=== PATIENT | male | born 1995 | race Two or more races ===

== ENCOUNTER 2017-01-18 16:22 | Emergency (ER) | payer OTHER ==
[2017-01-18 16:26] VITALS: BP 139/72; PULSE 71; TEMP 98.9; BMI 31.8
--- NOTE | 2017-01-18 18:19 | PDOC ---
History of Present Illness - General Chief Complaint: Pain Stated Complaint: PAIN Testicular for one week Time Seen by Provider: 01/18/17 16:37 - History of Present Illness Initial Comments: 01/18/17 18:11 CHIEF COMPLAINT: testicular pain HISTORY OF PRESENT ILLNESS: 21 yo M with no significant PMH presents to [facility] with testicular pain x 4 days. Patient reports that he felt a "really sharp pain" four nights ago, and since then he has had continued pain although not quit as sharp. Patient reports that the pain "feels like someone punched me down there, although I know for a fact that didn't happen." Patient states that he feels as if his testicles are "a little swollen" and that the pain alternates between each side. Patient reports that he is not sexually active and never has been. PAST MEDICAL HISTORY: Denies past medical history FAMILY HISTORY: Denies SOCIAL HISTORY: Denies tobacco, alcohol, illicit drug use. SURGICAL HISTORY: Denies ALLERGIES: No known drug allergies REVIEW OF SYSTEMS General/Constitutional: Denies fever or chills. Denies weakness, weight change. HEENT: Denies change in vision. Denies ear pain or discharge. Denies sore throat. Cardiovascular: Denies chest pain or shortness of breath. Respiratory: Denies cough, wheezing, or hemoptysis. Gastrointestinal: Denies nausea, vomiting, diarrhea or constipation. Denies rectal bleeding. Genitourinary: Testicular pain x 4 days. Denies dysuria, frequency, or change in urination. Musculoskeletal: Denies joint or muscle swelling or pain. Denies neck or back pain. Skin and breasts: Denies rash or easy bruising. Neurologic: Denies headache, vertigo, loss of consciousness, or loss of sensation. PHYSICAL EXAM General Appearance: Well-appearing, appropriately dressed. No apparent distress. HEENT: EOMI, PERRLA, normal ENT inspection, normal voice, TMs normal, pharynx normal. No conjunctival pallor. No photophobia, scleral icterus. Neck: Supple. Trachea midline. No tenderness, rigidity, carotid bruit, stridor , lymphadenopathy, or thyromegaly. Respiratory/Chest: Lungs CTAB. No shortness of breath, chest tenderness, respiratory distress, accessory muscle use. No crackles, rales, rhonchi, stridor , wheezing, dullness Cardiovascular: RRR. S1, S2. No JVD, murmur, bradycardia, tachycardia. Gastrointestinal/Abdominal: Normal bowel sounds. Abdomen soft, non-distended. No tenderness or rebound tenderness. No organomegaly, pulsatile mass, guarding , hernia, hepatomegaly, splenomegaly. Genitourinary: Scrotal exam: Mild swelling to left testicle with tenderness on palpation. Lymphatic: No adenopathy, tenderness. Musculoskeletal/Extremities: Normal inspection. FROM of all extremities, normal capillary refill. Pelvis Stable. No CVA tenderness. No tenderness to extremities, pedal edema, swelling, erythema or deformity. Integumentary: Appropriate color, dry, warm. No cyanosis, erythema, jaundice or rash Neurologic: technology engineer II-XII intact. Fully oriented, alert. Appropriate mood/affect. Motor strength 5/5. No appreciable EOM palsy, facial droop or sensory deficit. 01/18/17 19:32 Past History - Past Medical History Allergies/Adverse Reactions: Allergies Allergy/AdvReac Type Severity Reaction Status Date / Time No Known Allergies Allergy Verified 05/29/14 17:16 Home Medications: Ambulatory Orders Ibuprofen 400 mg PO Q6H PRN #28 tablet 01/18/17 Other medical history: denies - Suicide/Smoking/Psychosocial Hx Smoking Status: No Smoking History: Never smoked Number of Cigarettes Smoked Daily: 0 Information on smoking cessation initiated: No Hx Alcohol Use: No Drug/Substance Use Hx: No Substance Use Type: None *Physical Exam - Vital Signs Last Vital Signs Temp Pulse Resp BP Pulse Ox 98.9 F 71 18 139/72 98 01/18/17 16:24 01/18/17 16:24 01/18/17 16:24 01/18/17 16:24 01/18/17 16:24 ED Treatment Course - RADIOLOGY Radiology Studies Ordered: Category Date Time Status SCROTUM AND CONTENTS US [US] Stat Ultrasound 01/18/17 17:11 Ordered Medical Decision Making - Medical Decision Making 01/18/17 19:32 21 yo M with no significant PMH presents to [facility] with testicular pain x 4 days. -Scrotal ultrasound -UA, UCx, Ct/GC Ultrasound results negative for torsion. Epididymal cyst vs spermatocele. Pt seen and evaluated by attending MD Huber, possible torsion 4 days ago now resolving. Will give NSAIDS and referral to urology. Patient instructed to f/u with urology and given strict instructions to go to ER immediately should symptoms present again. *DC/Admit/Observation/Transfer Diagnosis at time of Disposition: Testicular pain, unspecified - Discharge Dispostion Disposition: HOME Condition at time of disposition: Stable Admit: No - Prescriptions Prescriptions: Ibuprofen 400 mg PO Q6H PRN #28 tablet PRN Reason: Pain - Referrals Referrals: Kunal Ahmadi MD [Primary Care Provider] - Derick Ramirez MD., MD [Staff Physician] - - Patient Instructions Printed Discharge Instructions: DI for Testicular Pain Additional Instructions: Please take medication as prescribed and follow up with a urologist within the next week. As discussed with Dr. Huber, should this pain returns, please go to the ER IMMEDIATELY for emergent evaluation.
[2017-01-18] MEDS ORDERED: IBUPROFEN 400 MG TABLET (FP) PO ONE ×2 (19:08→19:14)
[2017-01-18 19:22] LABS: URINE APPEARANCE CLEAR; URINE BILIRUBIN NEGATIVE (NEGATIVE); URINE BLOOD NEGATIVE (NEGATIVE); URINE COLOR YELLOW; URINE GLUCOSE (UA) NEGATIVE (NEGATIVE); URINE KETONE NEGATIVE (NEGATIVE); URINE LEUK ESTERASE NEGATIVE (NEGATIVE); URINE NITRITE NEGATIVE (NEGATIVE); URINE PROTEIN NEGATIVE (NEGATIVE); URINE UROBILINOGEN NEGATIVE mg/dL (0.2-1.0)
== END 2017-01-18 19:37 | disposition home or self-care (01) ==
LOC: JERFT 16:22
DX: N50.819 Testicular pain, unspecified (principal)
CPT/HCPCS: 36415; 76870-TC; 81003; 87086; 87491; 87591; 99281-25

== ENCOUNTER 2021-04-20 19:28 | Emergency (ER) | payer OTHER ==
[2021-04-20 20:05] VITALS: BP 105/69; PULSE 90; TEMP 98.2; BMI 30.9
== END 2021-04-20 21:11 | disposition home or self-care (01) ==
LOC: JER 19:28
DX: U07.1 COVID-19 (principal)
CPT/HCPCS: 93005; 93010; 99283-25

== ENCOUNTER 2021-04-25 21:33 | Emergency (ER) | payer OTHER ==
[2021-04-25 21:42] VITALS: BP 108/70; PULSE 92; TEMP 98.1; BMI 32.5
== END 2021-04-26 00:24 | disposition home or self-care (01) ==
LOC: JER 21:33 → JERFT 21:33
PROC: 2W3DX1Z Immobilization of Left Lower Arm using Splint (ICD-10-PCS; principal; 2021-04-25)
DX: S62.92XA Unspecified fracture of left hand, initial encounter for closed fracture (principal)
CPT/HCPCS: 73130-TC-LT-FY; 99284-25

== ENCOUNTER 2021-05-19 19:19 | Emergency (ER) | payer OTHER ==
[2021-05-19 19:51] VITALS: BP 103/56; PULSE 71; TEMP 97; BMI 34.3
== END 2021-05-19 20:57 | disposition left against medical advice (07) ==
LOC: JER 19:19
DX: R10.9 Unspecified abdominal pain (principal)
CPT/HCPCS: 99281-25

== ENCOUNTER 2021-05-19 22:25 | Emergency (ER) | payer OTHER ==
[2021-05-19 23:20] VITALS: BP 122/71; PULSE 69; TEMP 97.8; BMI 34.3
[2021-05-20] MEDS ORDERED: FAMOTIDINE 20 MG TABLET PO ONE (00:47)
[2021-05-20] MEDS ORDERED: ACETAMINOPHEN 325 MG TABLET (FP) PO ONE (00:47)
[2021-05-20] MEDS ORDERED: MAG HYDROX/AL HYDROX/SIMETH 30 ML UNIT-DOSE CUP PO ONE (00:47)
== END 2021-05-20 03:25 | disposition home or self-care (01) ==
LOC: JER 22:25
DX: R10.10 Upper abdominal pain, unspecified (principal)
CPT/HCPCS: 74019-TC-FY; 82962; 93005; 93010; 99285-25

== ENCOUNTER 2021-07-24 20:02 | Emergency (ER) | payer OTHER ==
[2021-07-24 20:18] VITALS: BP 137/82; PULSE 89; TEMP 97.6; BMI 30.9
[2021-07-24 21:46] LABS: URINE APPEARANCE CLEAR; URINE BILIRUBIN NEGATIVE (NEGATIVE); URINE COLOR YELLOW; URINE GLUCOSE (UA) NEGATIVE (NEGATIVE); URINE KETONE TRACE (NEGATIVE); URINE LEUK ESTERASE NEGATIVE (NEGATIVE); URINE NITRITE NEGATIVE (NEGATIVE); URINE PROTEIN NEGATIVE (NEGATIVE); URINE UROBILINOGEN 0.2 mg/dL (0.2-1.0)
[2021-07-24] MEDS ORDERED: IBUPROFEN 400 MG TABLET (FP) PO ONE (22:27)
[2021-07-24] MEDS ORDERED: IBUPROFEN 600 MG TABLET (FP) PO ONE ×2 (22:33→22:34)
== END 2021-07-24 22:38 | disposition home or self-care (01) ==
LOC: JERFT 20:02
DX: N50.811 Right testicular pain (principal)
CPT/HCPCS: 36415; 76870-TC; 81003; 87086; 87491; 87591; 99284-25

== ENCOUNTER 2021-08-06 19:25 | Emergency (ER) | payer OTHER ==
[2021-08-06 19:37] VITALS: BP 114/78; PULSE 88; TEMP 98.1; BMI 29.9
[2021-08-06] MEDS ORDERED: IBUPROFEN 600 MG TABLET (FP) PO ONE ×2 (20:29→20:38)
[2021-08-06 20:44] LABS: URINE APPEARANCE CLEAR; URINE BILIRUBIN NEGATIVE (NEGATIVE); URINE COLOR YELLOW; URINE GLUCOSE (UA) NEGATIVE (NEGATIVE); URINE KETONE TRACE (NEGATIVE); URINE LEUK ESTERASE NEGATIVE (NEGATIVE); URINE NITRITE NEGATIVE (NEGATIVE); URINE PROTEIN NEGATIVE (NEGATIVE); URINE UROBILINOGEN 0.2 mg/dL (0.2-1.0)
== END 2021-08-07 00:39 | disposition home or self-care (01) ==
LOC: JER 19:25
DX: N50.811 Right testicular pain (principal)
CPT/HCPCS: 74176-TC; 76870-TC; 81003; 87086; 99285-25

== ENCOUNTER 2021-09-24 11:27 | Emergency (ER) | payer OTHER ==
[2021-09-24 11:51] VITALS: TEMP 98.2; BMI 31.6
[2021-09-24 13:40] LABS: URINE APPEARANCE CLEAR; URINE BILIRUBIN NEGATIVE (NEGATIVE); URINE COLOR YELLOW; URINE GLUCOSE (UA) NEGATIVE (NEGATIVE); URINE KETONE NEGATIVE (NEGATIVE); URINE LEUK ESTERASE NEGATIVE (NEGATIVE); URINE NITRITE NEGATIVE (NEGATIVE); URINE PROTEIN NEGATIVE (NEGATIVE); URINE UROBILINOGEN 0.2 mg/dL (0.2-1.0)
[2021-09-24 16:29] VITALS: BP 117/79; PULSE 69
== END 2021-09-24 16:29 | disposition home or self-care (01) ==
LOC: JER 11:27
DX: N50.819 Testicular pain, unspecified (principal)
CPT/HCPCS: 36415; 76870-TC; 81003; 87086; 87491; 87591; 99284-25

== ENCOUNTER 2022-04-25 12:25 | Emergency (ER) | payer OTHER ==
[2022-04-25 12:38] VITALS: BP 112/70; PULSE 78; RESP 18; TEMP 98; BMI 36.0
[2022-04-25] MEDS ORDERED: NAPROXEN 500 MG TABLET PO ONE (13:50)
[2022-04-25] MEDS ORDERED: NAPROXEN 500 MG TABLET ONE (13:57)
[2022-04-25 14:31] LABS: BASO % 0.7 % (0-2.0); EOS % 2.4 % (0-4.5); HEMATOCRIT 44.1 % (35.4-49); HEMOGLOBIN 14.7 GM/dL (11.7-16.9); LYMPH % 26.3 % (8-40); MCH 28.4 pg (25.7-33.7); MCHC 33.3 g/dl (32.0-35.9); MEAN CELL VOLUME 85.5 fl (80-96); MEAN PLT VOLUME 8.6 fl (7.5-11.1); MONO % 8.2 % (3.8-10.2); NEUT % 62.4 % (42.8-82.8); PLATELET COUNT 175 10^3/uL (134-434); RBC 5.16 M/mm3 (4.00-5.60); WHITE BLOOD COUNT 6.6 K/mm3 (4.0-10.0)
[2022-04-25 14:32] LABS: PH,URINE 5.5 (5.0-8.0); URINE APPEARANCE CLEAR; URINE BILIRUBIN NEGATIVE (NEGATIVE); URINE COLOR YELLOW; URINE GLUCOSE (UA) NEGATIVE (NEGATIVE); URINE KETONE NEGATIVE (NEGATIVE); URINE LEUK ESTERASE NEGATIVE (NEGATIVE); URINE NITRITE NEGATIVE (NEGATIVE); URINE PROTEIN NEGATIVE (NEGATIVE); URINE UROBILINOGEN 0.2 mg/dL (0.2-1.0)
[2022-04-25 14:50] LABS: COCAINE, UR NEGATIVE (NEGATIVE); URINE BARBITURATES NEGATIVE (NEGATIVE)
[2022-04-25 14:51] LABS: PHENCYCLIDINE,URINE NEGATIVE (NEGATIVE)
[2022-04-25 14:56] LABS: ALBUMIN 3.8 g/dl (3.4-5.0); BLOOD UREA NITROGEN 22.8 mg/dL (7-18)
[2022-04-25 14:59] LABS: CREATININE 0.9 mg/dL (0.55-1.3)
[2022-04-25 15:00] LABS: BILIRUBIN,TOTAL 0.5 mg/dL (0.2-1); TOT PROT 7.5 g/dl (6.4-8.2)
[2022-04-25 15:08] LABS: METHADONE, UR NEGATIVE (NEGATIVE); OPIATES, URI NEGATIVE (NEGATIVE); URINE AMPHETAMINES NEGATIVE (NEGATIVE); URINE BENZODIAZEPINES NEGATIVE (NEGATIVE)
== END 2022-04-25 15:47 | disposition home or self-care (01) ==
LOC: JERFT 12:25 → JER 12:25 → JERFT 15:47
DX: R07.89 Other chest pain (principal)
CPT/HCPCS: 36415; 71046-TC-FY; 80053; 80307; 81003; 82550; 82553; 83690; 84484; 85025; 93005; 93010; 99285-25

== ENCOUNTER 2022-06-30 13:51 | Emergency (ER) | payer OTHER ==
[2022-06-30 14:17] VITALS: BP 127/79; PULSE 81; RESP 18; TEMP 98.2; BMI 35.6
[2022-06-30] MEDS ORDERED: SODIUM CHLORIDE 1,000 ML IV STA (14:43)
[2022-06-30] MEDS ORDERED: KETOROLAC TROMETHAMINE 30 MG/1 ML VIAL IM ONE (14:43)
[2022-06-30] MEDS ORDERED: METOCLOPRAMIDE HCL INJECTION 10 MG/2 ML VIAL IVPUSH ONE (14:43)
[2022-06-30] MEDS ORDERED: KETOROLAC TROMETHAMINE 30 MG/1 ML VIAL IVPUSH ONE (16:36)
[2022-06-30] MEDS ORDERED: METOCLOPRAMIDE HCL INJECTION 10 MG/2 ML VIAL ONE (16:37)
[2022-06-30] MEDS ORDERED: KETOROLAC TROMETHAMINE 30 MG/1 ML VIAL ONE (16:37)
[2022-06-30 17:19] LABS: BASO % 0.4 % (0-2.0); EOS % 1.6 % (0-4.5); HEMATOCRIT 43.9 % (35.4-49); HEMOGLOBIN 14.7 GM/dL (11.7-16.9); LYMPH % 23.5 % (8-40); MCH 28.3 pg (25.7-33.7); MCHC 33.5 g/dl (32.0-35.9); MEAN CELL VOLUME 84.3 fl (80-96); MEAN PLT VOLUME 9.1 fl (7.5-11.1); MONO % 8.9 % (3.8-10.2); NEUT % 65.6 % (42.8-82.8); PLATELET COUNT 166 10^3/uL (134-434); RBC 5.21 M/mm3 (4.00-5.60); WHITE BLOOD COUNT 6.3 K/mm3 (4.0-10.0)
[2022-06-30 17:39] LABS: ALBUMIN 3.9 g/dl (3.4-5.0); CALCIUM 8.7 mg/dL (8.5-10.1)
[2022-06-30 17:42] LABS: CREATININE 0.9 mg/dL (0.55-1.3)
[2022-06-30 17:44] LABS: BILIRUBIN,TOTAL 0.5 mg/dL (0.2-1); TOT PROT 7.3 g/dl (6.4-8.2)
== END 2022-06-30 19:01 | disposition home or self-care (01) ==
LOC: JER 13:51
PROC: 3E033GC Introduction of Other Therapeutic Substance into Peripheral Vein, Percutaneous Approach (ICD-10-PCS; principal; 2022-06-30)
PROC: 3E0233Z Introduction of Anti-inflammatory into Muscle, Percutaneous Approach (ICD-10-PCS; 2022-06-30)
PROC: 3E0333Z Introduction of Anti-inflammatory into Peripheral Vein, Percutaneous Approach (ICD-10-PCS; 2022-06-30)
PROC: 3E033GC Introduction of Other Therapeutic Substance into Peripheral Vein, Percutaneous Approach (ICD-10-PCS; 2022-06-30)
PROC: 3E0337Z Introduction of Electrolytic and Water Balance Substance into Peripheral Vein, Percutaneous Approach (ICD-10-PCS; 2022-06-30)
DX: R51.9 Headache, unspecified (principal); Z20.822 Contact with and (suspected) exposure to COVID-19
CPT/HCPCS: 0241U-QW; 36415; 70450-TC; 80053; 85025; 99284-25

== ENCOUNTER 2022-08-29 19:13 | Emergency (ER) | payer OTHER ==
[2022-08-29 19:39] VITALS: BP 127/70; PULSE 88; RESP 18; TEMP 98.2; BMI 35.2
[2022-08-29 21:27] LABS: URINE APPEARANCE CLEAR; URINE BILIRUBIN NEGATIVE (NEGATIVE); URINE COLOR YELLOW; URINE GLUCOSE (UA) NEGATIVE (NEGATIVE); URINE KETONE NEGATIVE (NEGATIVE); URINE LEUK ESTERASE NEGATIVE (NEGATIVE); URINE NITRITE NEGATIVE (NEGATIVE); URINE PROTEIN NEGATIVE (NEGATIVE); URINE UROBILINOGEN 0.2 mg/dL (0.2-1.0)
[2022-08-29 21:46] LABS: BASO % 0.6 % (0-2.0); EOS % 1.5 % (0-4.5); HEMATOCRIT 43.6 % (35.4-49); HEMOGLOBIN 15.4 GM/dL (11.7-16.9); LYMPH % 23.5 % (8-40); MCH 29.7 pg (25.7-33.7); MCHC 35.2 g/dl (32.0-35.9); MEAN CELL VOLUME 84.5 fl (80-96); MEAN PLT VOLUME 8.4 fl (7.5-11.1); MONO % 9.6 % (3.8-10.2); NEUT % 64.8 % (42.8-82.8); PLATELET COUNT 188 10^3/uL (134-434); RBC 5.16 M/mm3 (4.00-5.60); RDW 12.7 % (11.9-15.9); WHITE BLOOD COUNT 8.6 K/mm3 (4.0-10.0)
[2022-08-29 22:06] LABS: POTASSIUM 3.5 mmol/L (3.5-5.1)
[2022-08-29 22:08] LABS: CALCIUM 8.7 mg/dL (8.5-10.1)
[2022-08-29 22:09] LABS: BLOOD UREA NITROGEN 13.8 mg/dL (7-18)
[2022-08-29 22:12] LABS: CREATININE 0.9 mg/dL (0.55-1.3)
[2022-08-29 22:14] LABS: BILIRUBIN,TOTAL 0.5 mg/dL (0.2-1); TOT PROT 7.6 g/dl (6.4-8.2)
== END 2022-08-30 02:08 | disposition home or self-care (01) ==
LOC: JER 19:13
DX: R35.0 Frequency of micturition (principal)
CPT/HCPCS: 36415; 76856-TC; 76870-TC; 80053; 81003; 85025; 87086; 99284-25